=== PATIENT | female | born 1980 | race Caucasian/White ===

== ENCOUNTER → 2022-11-11 | Outpatient (CLI) | payer OTHER ==
[2022-11-11 13:13] LABS: HEMATOCRIT 43.4 % (36.0-47.0); HEMOGLOBIN 13.3 g/dl (12.0-15.5); MEAN CORPUSCULAR HEMOGLOBIN 27.1 pg (27.0-33.0); MEAN CORPUSCULAR HGB CONC 30.6 g/dl (32.0-36.5); MEAN CORPUSCULAR VOLUME 88.4 fl (80.0-96.0); PLATELET COUNT, AUTOMATED 275 10^3/uL (150-450); RED BLOOD COUNT 4.91 10^6/uL (4.00-5.40); WHITE BLOOD COUNT 8.3 10^3/uL (4.0-10.0)
== END ==
LOC: M PLALAB 11:21
PROVIDERS: ATTEND Obstetrics & Gynecology
DX: N93.9 Abnormal uterine and vaginal bleeding, unspecified (principal)

== ENCOUNTER 2023-04-15 08:08 | Day surgery (SDC) | payer OTHER ==
[~2023-04-15] VITALS: Ht 160 cm; Wt 89.4 kg
[~2023-04-15 08:08] MED LIST: ALIG4CAP PO; MAGN400C2 PO; TIRZ5PEN SC
[2023-04-15] MEDS ORDERED: ceFAZolin SOD 2 GM in IV 1 EA IV ONE (08:35)
[2023-04-15 08:39] LABS: HEMATOCRIT 38.9 % (36.0-47.0); HEMOGLOBIN 12.3 g/dl (12.0-15.5); MEAN CORPUSCULAR HEMOGLOBIN 26.9 pg (27.0-33.0); MEAN CORPUSCULAR HGB CONC 31.6 g/dl (32.0-36.5); MEAN CORPUSCULAR VOLUME 84.9 fl (80.0-96.0); PLATELET COUNT, AUTOMATED 244 10^3/uL (150-450); RED BLOOD COUNT 4.58 10^6/uL (4.00-5.40); WHITE BLOOD COUNT 7.2 10^3/uL (4.0-10.0)
[2023-04-15] MEDS ORDERED: ROCURONIUM BROMIDE 50MG/5ML VIAL As Ordered ONE ×2 (08:40→12:16)
[2023-04-15] MEDS ORDERED: propofoL 200 MG/20 ML VIAL As Ordered ONE ×2 (08:40→10:26)
[2023-04-15] MEDS ORDERED: LIDOCAINE 2% INJ 100 MG/5 ML SYRINGE As Ordered ONE (08:40)
[2023-04-15] MEDS ORDERED: fentaNYL 250 MCG/5 ML INJECTION As Ordered ONE (08:40)
[2023-04-15] MEDS ORDERED: MIDAZOLAM INJ 2MG/2ML VIAL As Ordered ONE (08:41)
[2023-04-15] MEDS ORDERED: LIDOCAINE 2% 100MG/5ML SDV (FOR ANES.) As Ordered ONE (08:42)
[2023-04-15] MEDS ORDERED: CLINDAMYCIN 900 MG in IV 1 EA IV ONE (10:30)
[2023-04-15] MEDS ORDERED: CIPROFLOXACIN 400 MG in IV 1 EA IV ONE (10:30)
[2023-04-15] MEDS ORDERED: CLINDAMYCIN 900MG/6ML VIAL As Ordered ONE (10:50)
[2023-04-15] MEDS ORDERED: CIPROFLOXACIN/D5W 400 MG/200 ML BAG As Ordered ONE (10:50)
[2023-04-15] MEDS ORDERED: LACRILUBE (AKWA TEARS) OPHTH OINT 3.5GM As Ordered ONE (10:54)
[2023-04-15] MEDS ORDERED: ACETAMINOPHEN 1000MG 100ML IV BAG As Ordered ONE (11:32)
[2023-04-15] MEDS ORDERED: KETOROLAC 60MG 2ML VIAL As Ordered ONE (11:32)
[2023-04-15] MEDS ORDERED: ONDANSETRON 4MG 2ML VIAL As Ordered ONE (11:32)
[2023-04-15] MEDS ORDERED: METOCLOPRAMIDE INJ 10MG/2ML VIAL As Ordered ONE (11:32)
[2023-04-15] MEDS ORDERED: SUGAMMADEX SODIUM 500 MG/5 ML VIAL (BRIDION) As Ordered ONE (11:32)
[2023-04-15] MEDS ORDERED: DESFLURANE 240 ML INHALANT As Ordered ONE (11:51)
[2023-04-15] MEDS ORDERED: HYDROmorphone HCL 2MG/ML 1ML VIAL As Ordered ONE (12:18)
[2023-04-15] MEDS ORDERED: oxyCODONE 5MG TAB PO PRN (13:40)
[2023-04-15] MEDS ORDERED: HYDROMORPHONE HCL 0.5 MG/ 0.5 ML SYRINGE IV PRN (13:40)
[2023-04-15] MEDS ORDERED: fentaNYL 100 MCG/2 ML INJECTION IV PRN (13:40)
[2023-04-15] MEDS ORDERED: LR 1,000 ML IV SCH (13:40)
[2023-04-15] MEDS ORDERED: PERCOCET 5MG/325MG TAB PO PRN (14:15)
[2023-04-15] MEDS: ONDANSETRON 4MG 2ML VIAL IV PRN ×2 (14:21→14:30)
[2023-04-15] MEDS ORDERED: LR 500 ML IV SCH (15:00)
[2023-04-15 16:48] VITALS: BP 111/60; TEMP 97.9; O2SAT 98
[2023-04-15] MEDS ORDERED: KETOROLAC 30 MG/ML 1ML VIAL IV SCH (20:00)
== END 2023-04-15 16:56 | disposition home or self-care (01) ==
LOC: M SDC 08:08
PROVIDERS: ATTEND Obstetrics & Gynecology
DX: D25.9 Leiomyoma of uterus, unspecified (principal); N93.9 Abnormal uterine and vaginal bleeding, unspecified; Z88.1 Allergy status to other antibiotic agents; Z91.040 Latex allergy status; Z87.891 Personal history of nicotine dependence; Z79.899 Other long term (current) drug therapy
CPT/HCPCS: 36415; 58546; 58573; 81025; 85027; 86850; 86900; 86901; 88307; J0131; J0665; J0736; J0737; J0744; J1100; J1170; J1885; J2250; J2405; J2765; J3010; S2900